=== PATIENT | male | born 1960 | race Caucasian/White ===

== ENCOUNTER → 2016-08-27 | Outpatient (CLI) | payer OTHER ==
[~2016-08-27] MED LIST: COMPAZINE10 MG PO; DEXAMETHASONE4 MG PO; LOVASTATIN20 MG PO; NORCO 7.5-3251 EACH PO; NORVASC 5 MG TAB5 MG PO; ONDANSETRON HCL4 MG PO; TENORMIN 50 MG50 MG PO; TRIAMTERENE-HC1 EAC3 PO; WELLBUTRIN SR150 M1 PO
== END ==
LOC: CT 08-20 08:00
DX: C34.11 Malignant neoplasm of upper lobe, right bronchus or lung (principal); J91.0 Malignant pleural effusion; C77.0 Secondary and unspecified malignant neoplasm of lymph nodes of head, face and neck; F17.210 Nicotine dependence, cigarettes, uncomplicated; T82.828A Fibrosis due to vascular prosthetic devices, implants and grafts, initial encounter; J90 Pleural effusion, not elsewhere classified; R91.8 Other nonspecific abnormal finding of lung field; M84.48XA Pathological fracture, other site, initial encounter for fracture
CPT/HCPCS: 71260; J7050; Q9962

== ENCOUNTER → 2016-11-26 | Outpatient (CLI) | payer OTHER | LOC: CT 09:12 | DX: C34.11 Malignant neoplasm of upper lobe, right bronchus or lung (principal); C77.0 Secondary and unspecified malignant neoplasm of lymph nodes of head, face and neck; J91.0 Malignant pleural effusion; F17.210 Nicotine dependence, cigarettes, uncomplicated; R91.8 Other nonspecific abnormal finding of lung field | CPT/HCPCS: 36415; 70491; 71260; 82565; 84520; J7050; Q9965 ==